=== PATIENT | male | born 1980 | race Caucasian/White ===

== ENCOUNTER 2017-09-21 16:44 | Emergency (ER) | payer BC ==
[~2017-09-21] VITALS: Ht 162.6 cm; Wt 79.4 kg
[~2017-09-21 16:44] MED LIST: AMOX500 PO; CEPH500 PO; CRUTCH4 USE; CYCL10 PO; HYDACE5 PO; IBUP800 PO; NAPR500 PO; Norco 5-325 Ta1 EACH PO; OXYACE5T PO; PENVK500 PO; RXCYCL10 PO; RXOXYACE PO; Veetids 500500 MG PO
[2017-09-21] MEDS ORDERED: Keflex500 MG PO (17:11)
== END 2017-09-21 17:52 | disposition home or self-care (01) ==
LOC: ER 16:44
DX: L55.1 Sunburn of second degree (principal); Z23 Encounter for immunization; F17.200 Nicotine dependence, unspecified, uncomplicated
CPT/HCPCS: 90714